=== PATIENT | female | born 2000 | race African-American/Black ===

== ENCOUNTER 2025-06-04 08:15 | Emergency (ER) | payer MEDICAID ==
[~2025-06-04] VITALS: Ht 165.1 cm; Wt 54.4 kg
[2025-06-04 08:18] VITALS: O2SAT 100
[2025-06-04] MEDS: SODIUM CHLORIDE 0.9% 1,000 ML IV ONE (08:45)
[2025-06-04] MEDS: ONDANSETRON HCL 4MG/2ML INJ IV ONE ×2 (08:45→12:12)
[2025-06-04 10:15] LABS: HEMATOCRIT. 41.5 % (36.0-48.0); HEMOGLOBIN. 14.0 g/dL (12.0-16.0); RED BLOOD CELL COUNT 4.27 mill/uL (4.2-5.4); RED CELL DISTRIBUTION WIDTH 13.6 % (11.6-14.6)
[2025-06-04 10:32] LABS: CREATININE 0.7 mg/dL (0.6-1.0); UREA NITROGEN BLOOD 8 mg/dL (9-23)
[2025-06-04 10:34] LABS: ASPARTATE AMINOTRANSFERASE 15 IU/L (<34); BILIRUBIN DIRECT 0.1 mg/dL (<=3.0); BILIRUBIN TOTAL 0.6 mg/dL (0.1-1.0)
[2025-06-04 10:35] LABS: PROTEIN TOTAL 6.8 g/dL (6.0-8.3)
[2025-06-04 11:03] LABS: BAND% 7.0 % (1.0-6.0); LYMPHOCYTES % MANUAL 9.0 % (20.0-60.0); MONOCYTES % MANUAL 1.0 % (2.0-8.0); NEUTROPHILS % MANUAL 83.0 % (45.0-75.0); PLATELET ESTIMATE NORMAL
[2025-06-04 11:04] LABS: PLATELET 217 x1000/uL (130-400)
[2025-06-04] MEDS: KETOROLAC 15MG/ML VIAL IV NR (11:07)
[2025-06-04] MEDS: HALOPERIDOL LACTATE 5MG/ML VIAL IM ONE (12:11)
[2025-06-04 12:44] LABS: CLARITY URINE CLOUDY (CLEAR); COLOR URINE YELLOW (YELLOW); GLUCOSE URINE NEGATIVE (NEGATIVE); KETONES URINE 4+ (NEGATIVE); LEUKOCYTE ESTERASE URINE NEGATIVE (NEGATIVE); NITRITE URINE NEGATIVE (NEGATIVE); OCCULT BLOOD URINE NEGATIVE (NEGATIVE); PH URINE 7.5 (4.5-8.0); PROTEIN URINE 1+ (NEGATIVE); SPECIFIC GRAVITY URINE 1.028 (1.005-1.030); UROBILINOGEN URINE 0.2 E.U./dL (0.2-1.0)
[2025-06-04] MEDS ORDERED: ONDA-239 PO (12:57)
[2025-06-04 13:10] VITALS: BP 110/72; PULSE 75; RESP 16; TEMP 36.9; O2SAT 100
[2025-06-04 13:24] LABS: BACTERIA URINE TRACE; RBC URINE 0-2 /hpf (0-2); SQUAMOUS EPITHELIAL CELL URINE 2+ /lpf (RARE/1+); WBC URINE 0-2 /hpf (0-2); YEAST URINE NONE SEEN
[2025-06-04 13:58] LABS: *AMPHETAMINES SCREEN URINE NEGATIVE (NEGATIVE); *BARBITURATES SCREEN URINE NEGATIVE (NEGATIVE); *BENZODIAZEPINES SCREEN URINE NEGATIVE (NEGATIVE); *COCAINE SCREEN URINE NEGATIVE (NEGATIVE); CANNABINOID URINE SCREEN PRESUMPTIVE POSITIVE (NEGATIVE); ECSTASY MDMA SCREEN URINE NEGATIVE (NEGATIVE); METHADONE URINE SCREEN NEGATIVE (NEGATIVE); OPIATES URINE SCREEN NEGATIVE (NEGATIVE); PHENCYCLIDINE URINE SCREEN NEGATIVE (NEGATIVE)
== END 2025-06-04 13:12 | disposition home or self-care (01) ==
LOC: ER 08:33
DX: F12.90 Cannabis use, unspecified, uncomplicated (principal); R11.2 Nausea with vomiting, unspecified; Z79.899 Other long term (current) drug therapy
CPT/HCPCS: 80076; 80305; 80048; 81003; 83690; 83735; 85025; 36415; 96361; 96372; 96374; 96375; 99284; J1630; J1885; J2405; J7030; Z7610 ×2